=== PATIENT | female | born 1980 ===

== ENCOUNTER 2023-07-27 20:11 | Outpatient (CLI) | payer OTHER, SELFPAY | END 2023-07-27 20:12 | disposition home or self-care (01) | LOC: SLEEP 20:13 | PROVIDERS: PCP Family Medicine; Visit Provider Internal Medicine | DX: G47.10 Hypersomnia, unspecified (principal) | CPT/HCPCS: 95810 ==

== ENCOUNTER 2024-02-26 10:18 | Outpatient (CLI) | payer OTHER, SELFPAY | END 2024-02-26 10:19 | disposition home or self-care (01) | PROVIDERS: PCP Family Medicine; Visit Provider Physician Assistant | DX: Z01.419 Encounter for gynecological examination (general) (routine) without abnormal findings (principal); I10 Essential (primary) hypertension; Z13.6 Encounter for screening for cardiovascular disorders; Z13.1 Encounter for screening for diabetes mellitus; Z13.29 Encounter for screening for other suspected endocrine disorder; Z13.9 Encounter for screening, unspecified | CPT/HCPCS: 80061; 84443 ==

== ENCOUNTER 2024-03-03 11:16 | Outpatient (CLI) | payer OTHER, SELFPAY ==
--- NOTE | 2024-03-03 11:30 | CRLHL7_ITS ---
For Patients: As a result of the Century Cures Act, medical imaging exams and procedure reports are released immediately into your electronic medical record. You may view this report before your referring provider. If you have questions, please contact your health care provider. INDICATION: Abnormal menstruation and right lower quadrant pain COMPARISON: none TECHNIQUE: 2D willard scale and color Doppler images were acquired of the pelvis using a transabdominal and transvaginal approach. FINDINGS: Sonographic images demonstrate a normal size and smooth outer contour of the uterus. Uterus measures 8.3 cm in length by 4.0 cm in AP diameter by 5.7 cm in transverse dimension. The myometrium has a normal uniform echotexture. The endometrial lining measures 9.3 mm in composite thickness. The right ovary measures 3.1 x 1.2 x 1.6 cm in size and the left ovary measures 5.0 x 3.6 x 4.4 cm. The ovaries demonstrate normal arterial and venous blood flow on color Doppler analysis. There are no suspicious fluid collections within the cul-de-sac. Simple left ovarian cyst measures 4.0 x 3.3 x 3.3 cm. IMPRESSION: Simple left ovarian cyst measures 4.0 cm. No adnexal mass or excess pelvic free fluid. No uterine fibroid. Dictated by Kelby Brock MD @ 03/03/2024 12:45:03 PM (Electronically Signed)
== END 2024-03-03 11:17 | disposition home or self-care (01) ==
LOC: US 11:16
PROVIDERS: PCP Family Medicine; Visit Provider Physician Assistant
DX: N93.9 Abnormal uterine and vaginal bleeding, unspecified (principal); R10.31 Right lower quadrant pain
CPT/HCPCS: 76830; 76856

== ENCOUNTER 2024-07-29 09:51 | Outpatient (CLI) | payer OTHER, SELFPAY | END 2024-07-29 09:52 | disposition home or self-care (01) | LOC: CT 09:51 | PROVIDERS: PCP Registered Nurse; Visit Provider Physician Assistant | DX: R10.31 Right lower quadrant pain (principal) | CPT/HCPCS: 74177; Q9967 ==

== ENCOUNTER 2024-08-10 09:49 | Outpatient (CLI) | payer OTHER, SELFPAY | END 2024-08-10 09:50 | disposition home or self-care (01) | PROVIDERS: PCP Registered Nurse; Visit Provider Registered Nurse | DX: R53.83 Other fatigue (principal); R03.0 Elevated blood-pressure reading, without diagnosis of hypertension; R00.2 Palpitations; N92.6 Irregular menstruation, unspecified; R10.31 Right lower quadrant pain | CPT/HCPCS: 80048; 82306; 82728; 84443 ==

== ENCOUNTER 2024-12-12 09:33 | Outpatient (CLI) | payer OTHER, SELFPAY ==
--- NOTE | 2024-12-12 09:45 | CRLHL7_ITS ---
For Patients: As a result of the Century Cures Act, medical imaging exams and procedure reports are released immediately into your electronic medical record. You may view this report before your referring provider. If you have questions, please contact your health care provider. INDICATION: BILATERAL SCREENING MAMMOGRAM, ASYMPTOMATIC 44 Y/O FEMALE COMPARISON: 09/05/2022 TECHNIQUE: Digital mammogram in CC and MLO projections including computer-aided detection (CAD) and tomosynthesis. BREAST COMPOSITION: There are scattered areas of fibroglandular density. FINDINGS: No suspicious findings. ASSESSMENT: BI-RADS 1 Negative RECOMMENDATION: Annual screening mammogram. A lay language report of this examination will be provided to the patient. Dictated by: Maribel Norton MD @ 12/15/2024 07:58:36 (Electronically Signed)
== END 2024-12-12 09:34 | disposition home or self-care (01) ==
PROVIDERS: PCP Registered Nurse; Visit Provider Physician Assistant
DX: Z12.31 Encounter for screening mammogram for malignant neoplasm of breast (principal)
CPT/HCPCS: 77063; 77067

== ENCOUNTER 2024-12-12 17:19 | Outpatient (CLI) | payer OTHER, SELFPAY ==
--- NOTE | 2024-12-12 17:30 | MR_ITS ---
[facility] [address] [facility] [address] Phone:?[phone] Fax:?[phone] Referring Physician Information: MARY Ureña [address] [facility] [address] Phone:?[phone] Fax:?[phone] Patient:?Corina Glynn D.O.B:?1980 Sex:?Female Phone:?[phone] [facility] MRN:?[id number] Exam Date:?12/12/2024 EXAM: MRI EXAMINATION OF THE RIGHT WRIST WITHOUT CONTRAST CLINICAL INFORMATION: Female, 44 years old, with ulnar sided right wrist pain. INDICATION: Evaluate for internal derangement. PRIOR SURGERY: None reported. PLAIN FILMS: None available. COMPARISONS: No prior MRIs available. TECHNICAL INFORMATION: Using a 1.5T MR scanner and a localizing surface coil: coronals: T1, PDFS, 3D T2 sagittals: PDFS axials: PD, PDFS SEDATION: None CONTRAST: None FINDINGS: Bones and joints: No stress/occult fracture, bone marrow edema, or carpal bone osteonecrosis. Mild chondral thinning, irregularity, and minimal osteophytosis of the 1st CMC joint. The joint spaces are otherwise unremarkable. No significant effusion in the distal radioulnar, radiocarpal, midcarpal, or carpometacarpal joint spaces. Triangular fibrocartilage: Acute sprain and high-grade tearing of the foveal and ulnar styloid attachments (coronal PDFS series 14 images 12-15). However, the central disc and radial attachments are intact. Ligaments: Abnormal signal and irregularity of the dorsal and volar scapholunate ligaments, without tear. The lunotriquetral ligaments are unremarkable. No widening of the scapholunate or lunotriquetral interval. Alignment:?Type I lunate. The capitolunate angle measures 8? (<30? normal). The scapholunate angle measures 50? (30?-60? normal). Ulnar variance is neutral. Tendons: The flexor tendons are normal in caliber and signal intensity throughout their course including within the carpal tunnel. The tendons within the 1st-5th extensor compartments are intact. Mild extensor carpi ulnaris tendinopathy with mild/moderate surrounding soft tissue edema chemical without tendon displacement or split/tear (axial PDFS series 8 images 13-19). Neurovascular structures: The median nerve appears normal in caliber and signal intensity throughout its course including within the carpal tunnel. The ulnar nerve is intact and normal in appearance. No evidence for intrinsic/extrinsic mass within Guyon's canal. Soft tissues: No dorsal or other soft tissue ganglion cyst. No synovitis. IMPRESSION: 1. Acute sprain and high-grade tearing of the foveal and ulnar styloid attachments of the TFCC. However, there is no tear of the central disc or radial attachments. 2. Mild extensor carpi ulnaris tendinopathy, without displacement or split/tear, but with surrounding soft tissue edema. 3. Chronic low-grade sprain of the scapholunate ligaments, without discrete tear or widening of the scapholunate interval. 4. Mild 1st CMC joint osteoarthritis. 5. No fracture or osseous stress reaction. BC Electronically signed on 12/13/2024 8:48:00 AM by Jordon Pleitez M.D.
== END 2024-12-12 17:20 | disposition home or self-care (01) ==
LOC: MRI 17:20
PROVIDERS: PCP Registered Nurse; Visit Provider Physician Assistant Surgical
DX: M25.531 Pain in right wrist (principal); S63.501A Unspecified sprain of right wrist, initial encounter; M18.11 Unilateral primary osteoarthritis of first carpometacarpal joint, right hand; S69.91XA Unspecified injury of right wrist, hand and finger(s), initial encounter
CPT/HCPCS: 73221